=== PATIENT | female | born 1965 | race Caucasian/White ===

== ENCOUNTER 2023-02-15 02:52 | Emergency (ER) | payer MEDICAID ==
[~2023-02-15] VITALS: Ht 167.6 cm; Wt 124.1 kg
[~2023-02-15 02:52] MED LIST: ASPI-1265 PO; ATOR20TA66 PO; LISI20TA28 PO; LOP25T PO; NITR0.4T51 SL; PANT-47 PO
[2023-02-15 03:09] VITALS: BP 171/91
[2023-02-15] MEDS ORDERED: IBUP-1984 PO (04:01)
[2023-02-15] MEDS ORDERED: CYCL-1 PO (04:01)
[2023-02-15] MEDS ORDERED: CAPS1ADH11 TOP (04:01)
== END 2023-02-15 04:12 | disposition home or self-care (01) ==
LOC: ER 02:52
DX: M43.6 Torticollis (principal); I10 Essential (primary) hypertension; Z79.82 Long term (current) use of aspirin; Z79.899 Other long term (current) drug therapy
CPT/HCPCS: 99284

== ENCOUNTER 2024-11-30 05:50 | Day surgery (SDC) | payer MEDICAID ==
[2024-11-26 11:37] LABS: BASOPHILS # (AUTO) 0.1 X10'3 (0-0.2); BASOPHILS % (AUTO) 0.8 % (0-1); EOSINOPHILS # (AUTO) 0.1 X10'3 (0-0.9); EOSINOPHILS % (AUTO) 1.7 % (0-6); LYMPHOCYTES # (AUTO) 2.4 X10'3 (1.1-4.8); LYMPHOCYTES % (AUTO) 31.4 % (21-51); MEAN CORPUSCULAR HEMOGLOBIN 30.2 PG (27.0-31.0); MEAN CORPUSCULAR HGB CONC 33.1 g/dL (33.0-36.5); MEAN PLATELET VOLUME 8.3 FL (7.4-10.4); MONOCYTES # (AUTO) 0.8 X10'3 (0-0.9); MONOCYTES % (AUTO) 10.7 % (2-12); NEUTROPHILS # (AUTO) 4.2 X10'3 (1.8-7.7); NEUTROPHILS % (AUTO) 55.4 % (42-75); PRE OP HEMATOCRIT 38.4 % (35.0-45.0); PRE OP HEMOGLOBIN 12.7 g/dL (12.0-16.0); PRE OP PLATELET COUNT 257 X10'3 (140-440); PRE OP WHITE BLOOD COUNT 7.6 10'3 (4.8-10.8); RED BLOOD COUNT 4.22 X10'6 (4.20-5.60); RED CELL DISTRIBUTION WIDTH 13.2 % (11.5-14.5)
[2024-11-26 11:43] LABS: BILIRUBIN,URINE NEGATIVE (Neg); CLARITY,URINE CLEAR (Clear); COLOR,URINE YELLOW (Yellow); GLUCOSE, URINE NEGATIVE (Neg); KETONES,URINE NEGATIVE (Neg); LEUKOCYTE ESTERASE ,URINE NEGATIVE (Neg); NITRITES, URINE NEGATIVE (Neg); OCCULT BLOOD,URINE NEGATIVE (Neg); PROTEIN,URINE NEGATIVE (Neg); UROBILINOGEN,URINE 0.2 E.U/dL (0.2-1.0)
[2024-11-26 11:47] LABS: UA COLLECTION TYPE NON-SPECIFIED
[2024-11-26 11:56] LABS: ALBUMIN 3.4 G/DL (3.4-5.0); ALBUMIN/GLOBULIN RATIO 0.9 (1.1-1.5); ALKALINE PHOSPHATASE 58 IU/L (46-116); BLOOD UREA NITROGEN 18 MG/DL (7-18); CHLORIDE 106 MMOL/L (99-107); CREATININE 0.58 MG/DL (0.40-0.90); PRE OP ALT 28 U/L (30-65); PRE OP ANION GAP 4 (8-16); PRE OP AST 18 U/L (10-37); PRE OP BILIRUB, TOTAL 0.3 MG/DL (0.0-1.0); PRE OP GLUCOSE 93 MG/DL (70-104); PRE OP POTASSIUM 4.7 MMOL/L (3.4-5.1); PRE OP SODIUM 139 MMOL/L (135-145); TOTAL CARBON DIOXIDE 29.4 MMOL/L (24-32); TOTAL PROTEIN 7.1 G/DL (6.4-8.2); eGFR > 90 ML/MIN
[2024-11-26 12:09] LABS: PRE OP PROTIME 10.4 SECONDS (9.0-12.0)
[2024-11-30] VITALS (12 sets, daily range): BP systolic 122–148; BP diastolic 49–123; PULSE 60–98; RESP 12–19; TEMP 97.5; O2SAT 94–100
[~2024-11-30] VITALS: Ht 165.1 cm; Wt 109.1 kg
[~2024-11-30 05:50] MED LIST changes: -ASPI-1265 PO; -ATOR20TA66 PO; +LEVO125T8 PO; -LOP25T PO; +METF-900 PO; -NITR0.4T51 SL; -PANT-47 PO
[2024-11-30] MEDS: famotidine 20mg tablet PO ONE (06:21)
[2024-11-30] MEDS: ringers solution, lacted 1,000 ML IV SCH (06:24)
[2024-11-30] MEDS: ceFAZolin 2gm in dextrose, iso 50 ML IV ONE (06:25)
[2024-11-30] MEDS: tranexamic acid 1gm/0.7% sal. 100 ML IV ONE (06:26)
[2024-11-30] MEDS ORDERED: BUPIVAcaine 2.5mg/ml inj 50ml vial (contains preservative) ONE (06:42)
[2024-11-30] MEDS ORDERED: ondansetron/PF 4mg/2ml inj IV PRN (07:30)
[2024-11-30] MEDS ORDERED: proCHLORperazine 10 MG/2 ml inj IV PRN (07:30)
[2024-11-30] MEDS ORDERED: hydrALAZINE 20mg/ml inj. IV PRN (07:30)
[2024-11-30] MEDS ORDERED: morphine 2 MG/ML inj. syringe IV PRN (07:30)
[2024-11-30] MEDS ORDERED: HYDROmorphone/PF 0.2 MG/ML SYRINGE IV PRN ×2 (07:30)
[2024-11-30] MEDS ORDERED: ringers solution, lacted 1,000 ML IV SCH (07:30)
[2024-11-30] MEDS ORDERED: meperidine/PF 25mg/ml syringe IV PRN (07:30)
[2024-11-30] MEDS ORDERED: acetaminophen 1,000mg/100ml IV 100 ML IV PRN (07:30)
[2024-11-30] MEDS ORDERED: labetalol 20mg/4ml (5mg/ml) syringe IV PRN (07:30)
[2024-11-30] MEDS ORDERED: sevoflurane 250ml liquid IH ONE (09:17)
[2024-11-30] MEDS ORDERED: midazolam 1 mg/ML 2ml injection ONE (09:28)
[2024-11-30] MEDS ORDERED: fentaNYL /PF 50mcg/ml 5ml ampule ONE (09:30)
[2024-11-30] MEDS ORDERED: propofol inj 20 ML IV ONE (09:39)
[2024-11-30] MEDS ORDERED: rocuronium 10mg/ml inj IV ONE ×2 (09:40→10:22)
[2024-11-30] MEDS ORDERED: LIDOcaine 2% (20mg/ml) 5ml vial ONE (09:40)
[2024-11-30] MEDS: BUPIVAcaine/PF 2.5 mg/ml (0.25%) 30ml vial IJ ONE (10:03)
[2024-11-30] MEDS ORDERED: dexamethasone sod phosphate 4mg/ml inj. ONE (10:22)
[2024-11-30] MEDS ORDERED: ondansetron/PF 4mg/2ml inj ONE (10:22)
[2024-11-30] MEDS ORDERED: glycopyrrolate 0.2mg/ml inj ONE (10:29)
[2024-11-30] MEDS ORDERED: neostigmine methylsulfate 1 MG/ML 10ml vial ONE (10:29)
[2024-11-30] MEDS ORDERED: sugammadex 200mg/2ml injection IV ONE (10:30)
[2024-11-30] MEDS: morphine 4 MG/ML inj SYRINge IV PRN (10:44)
[2024-11-30] MEDS: acetaminophen 1,000mg/100ml IV 100 ML IV ONE (10:52)
== END 2024-11-30 12:05 | disposition home or self-care (01) ==
LOC: PAS 05:50
PROVIDERS: ATTEND Surgery
DX: K80.10 Calculus of gallbladder with chronic cholecystitis without obstruction (principal); I10 Essential (primary) hypertension; E78.5 Hyperlipidemia, unspecified; G47.33 Obstructive sleep apnea (adult) (pediatric); E03.9 Hypothyroidism, unspecified; Z88.8 Allergy status to other drugs, medicaments and biological substances; Z79.01 Long term (current) use of anticoagulants; Z79.899 Other long term (current) drug therapy; Z98.890 Other specified postprocedural states; Z68.41 Body mass index [BMI] 40.0-44.9, adult
CPT/HCPCS: 36415; 47562; 71046; 80053; 81003; 82948; 85025; 85610; 85730; J0131; J0690; J1100; J2003; J2250; J2270; J2405; J2704; J2710; J3010; J3490; J7030; J7120; S2900; Z7506; Z7508; Z7512; A4215; A4618; A7000